=== PATIENT | male | born 1970 | race Two or more races ===

== ENCOUNTER 2020-06-24 09:02 | Emergency (ER) | payer OTHER, SELFPAY ==
[2020-06-24 09:19] VITALS: BP 138/84; PULSE 90; RESP 18; O2SAT 98; BMI 27.1
--- NOTE | 2020-06-24 09:22 | XR_ITS ---
PROCEDURE: XR FOREARM LT 2V CLINICAL INDICATION: fall Posttraumatic pain COMPARISON: CR XR WRIST LT MIN 3V from 06/24/2020 CR XR HAND LT MIN 3V from 06/24/2020 FINDINGS: Left forearm: There is a nondisplaced fracture involving the base of the styloid process of the radius. This extends into the articular surface of the distal radius. The proximal and mid aspect of the radius and ulna have an unremarkable appearance. There is an oval opacity in the soft tissues medial to the midshaft of the ulna and may be related to soft tissue ossification or foreign body. Left wrist: Nondisplaced transverse fracture at the base of the radial styloid process with extension to the articular surface with good alignment. The wrist is otherwise unremarkable. Left hand: There is a nondisplaced fracture involving the tuft of the distal phalanx the 2nd digit. IMPRESSION: 1. Nondisplaced distal radial fracture at the base of the styloid process with intra-articular involvement. 2. Nondisplaced comminuted fracture of the tuft of the distal phalanx of the 2nd digit Dictated by: Jf Jones MD 06/24/2020 10:36 Jf Jones MD in [place] 06/24/2020 10:36
--- NOTE | 2020-06-24 09:54 | XR_ITS ---
PROCEDURE: XR ELBOW LT MIN 3V CLINICAL INDICATION: fall Posttraumatic pain COMPARISON: No exams were available for comparison FINDINGS: No fracture or dislocation. No lytic or blastic change. There is normal mineralization. The joint spaces are well-preserved. No significant degenerative/arthritic changes. No erosive changes evident. Other findings:None. IMPRESSION: No acute findings. Dictated by: Jf Jones MD 06/24/2020 10:35 Jf Jones MD in [place] 06/24/2020 10:35
--- NOTE | 2020-06-24 10:18 | PC.NURSE ---
Dr. Nayeli mathias.
--- NOTE | 2020-06-24 10:45 | HMH.EDUTC ---
[facility] [place]ression: Wrist fracture, left Qualifiers: Encounter type: initial encounter Fracture type: closed Qualified Code(s): S62.102A - Fracture of unspecified carpal bone, left wrist, initial encounter for closed fracture Fall Qualifiers: Encounter type: initial encounter Qualified Code(s): W19.XXXA - Unspecified fall, initial encounter Closed fracture of phalanx of index finger Qualifiers: Encounter type: initial encounter Phalanx: distal Fracture alignment: nondisplaced Laterality: left Qualified Code(s): S62.661A - Nondisplaced fracture of distal phalanx of left index finger, initial encounter for closed fracture Hand abrasion Qualifiers: Encounter type: initial encounter Laterality: left Qualified Code(s): S60.512A - Abrasion of left hand, initial encounter Disposition: Home, Self-Care Condition on Discharge: Good Instructions: Wrist Fracture, DI for Wrist Fracture, DI for Finger Fracture, How to Take Care of Your Splint Additional Instructions: Rest the extremity, apply ice for 15 minutes as tolerated three or four times per day, Elevate the extremity as tolerated while you are resting. Wear the splint. If the injury swells and the splint becomes too tight you could take the lacey wrap off of the outside and rewrap it looser. Take ibuprofen for pain. I sent in a prescription to your pharmacy. Follow up with Dr. Tyler. She made you an appointment for next Wednesday (07-01-2020) at 3:00 pm. Her office is here in this hospital. Follow up with your regular doctor. GO TO THE ER FOR ANY WORSENING SYMPTOMS ORTHOPEDICS APPOINTMENT: Wednesday () at 3:00 pm Prescriptions: Ibuprofen [Ibuprofen 800mg Tablet] 800 mg PO Q8HP PRN #30 tab PRN Reason: Moderate Pain Transmission Status: Received by [id number] Mupirocin [Bactroban 2% Ointment 22gm tube] 1 applicatio TP TID 7 Days #1 tube Transmission Status: Received by [id number] cephALEXin [Keflex 500mg Cap] 500 mg PO Q6H 10 Days #40 cap Transmission Status: Received by [id number] Referrals: Provider,Referral, [Primary Care Provider] - Beata Tyler MD [Physician] - Forms: Work/School Release Time of Disposition: 10:55 Medical Decision Making - Medical Records Medical records reviewed: No: I reviewed the patient's medical records. - [place] Inquiry Pt receiving controlled substance: No Vital Signs: 06/24/20 09:19 06/24/20 11:02 Temperature 98.0 F Temperature Source Oral Pulse Rate 90 Pulse Rate [Radial] 90 Respiratory Rate 18 18 Blood Pressure 138/84 Blood Pressure [Right Arm] 138/84 Blood Pressure Mean [Right Arm] 102 Blood Pressure Source Automatic Cuff Blood Pressure Source [Right Arm] Automatic Cuff Blood Pressure Position Sitting Blood Pressure Position [Right Arm] Sitting 02 Sat by Pulse Oximetry 98 Oxygen Delivery Method Room Air Room Air - Radiology Data #1 Image(s): Wrist Image Reviewed: Yes I reviewed the patient's radiology image, Yes I have reviewed radiologist's interpretation Preliminary Findings: Abnormal PROCEDURE: XR FOREARM LT 2V CLINICAL INDICATION: fall Posttraumatic pain COMPARISON: CR XR WRIST LT MIN 3V from 06/24/2020 CR XR HAND LT MIN 3V from 06/24/2020 FINDINGS: Left forearm: There is a nondisplaced fracture involving the base of the styloid process of the radius. This extends into the articular surface of the distal radius. The proximal and mid aspect of the radius and ulna have an unremarkable appearance. There is an oval opacity in the soft tissues medial to the midshaft of the ulna and may be related to soft tissue ossification or foreign body. Left wrist: Nondisplaced transverse fracture at the base of the radial styloid process with extension to the articular surface with good alignment. The wrist is otherwise unremarkable. Left hand: There is a nondisplaced fracture involving the tuft of the
[2020-06-24 11:02] VITALS: BP 138/84; PULSE 90; RESP 18; TEMP 36.7; O2SAT 98
== END 2020-06-24 11:03 | disposition home or self-care (01) ==
PROVIDERS: Emergency Provider Nurse Practitioner Family
DX: S62.102A Fracture of unspecified carpal bone, left wrist, initial encounter for closed fracture (principal); S62.661A Nondisplaced fracture of distal phalanx of left index finger, initial encounter for closed fracture; S52.515A Nondisplaced fracture of left radial styloid process, initial encounter for closed fracture; W11.XXXA Fall on and from ladder, initial encounter; Y92.69 Other specified industrial and construction area as the place of occurrence of the external cause; Y99.0 Civilian activity done for income or pay; F17.210 Nicotine dependence, cigarettes, uncomplicated
CPT/HCPCS: 29125; 73080; 73090; 73110; 73130; 99202

== ENCOUNTER → 2020-07-19 14:23 | Outpatient (CLI) | payer OTHER, SELFPAY ==
--- NOTE | 2020-07-19 14:34 | XR_ITS ---
PROCEDURE: XR WRIST LT MIN 3V CLINICAL INDICATION: left radial styloid fracure; after cast removal COMPARISON: CR XR WRIST LT MIN 3V from 06/24/2020 FINDINGS: There is an ununited fracture of the radial styloid process not significantly changed from 06/24/2020. The fracture is non displaced. The joint spaces are well-preserved. No significant degenerative/arthritic changes. No erosive changes evident. Other findings:None. IMPRESSION: No change ununited radial styloid process fracture Dictated by: Jf Jones MD 07/19/2020 16:40 Jf Jones MD in [place] 07/19/2020 16:40
== END ==
PROVIDERS: Visit Provider Orthopaedic Surgery
DX: S52.513A Displaced fracture of unspecified radial styloid process, initial encounter for closed fracture (principal)
CPT/HCPCS: 73110

== ENCOUNTER → 2020-08-05 14:20 | Outpatient (CLI) | payer OTHER, SELFPAY ==
--- NOTE | 2020-08-05 14:23 | XR_ITS ---
PROCEDURE: XR WRIST LT MIN 3V CLINICAL INDICATION: Radial styloid FX Follow-up fracture COMPARISON: CR XR WRIST LT MIN 3V from 06/24/2020 CR XR WRIST LT MIN 3V from 07/19/2020 FINDINGS: Healing transverse fracture at the base of the radial styloid process with extension into the articular surface. Fracture line is somewhat less visible compared to the previous exam. The joint spaces are well-preserved. No significant degenerative/arthritic changes. No erosive changes evident. Other findings:None. IMPRESSION: Healing fracture at the base of the radial styloid process Dictated by: Jf Jones MD 08/05/2020 16:01 Jf Jones MD in [place] 08/05/2020 16:01
== END ==
PROVIDERS: Visit Provider Orthopaedic Surgery
DX: S52.512A Displaced fracture of left radial styloid process, initial encounter for closed fracture (principal)
CPT/HCPCS: 73110

== ENCOUNTER → 2020-08-28 09:52 | Outpatient (CLI) | payer OTHER, SELFPAY ==
--- NOTE | 2020-08-28 09:56 | XR_ITS ---
PROCEDURE: XR WRIST LT MIN 3V CLINICAL INDICATION: LT wrist FU COMPARISON: CR XR WRIST LT MIN 3V from 06/24/2020 CR XR WRIST LT MIN 3V from 07/19/2020 CR XR WRIST LT MIN 3V from 08/05/2020 FINDINGS: Transverse lucency once again noted at the base of the radial styloid process consistent with a nondisplaced fracture radial fracture line may be somewhat less apparent. There remains good alignment. The joint spaces are well-preserved. No significant degenerative/arthritic changes. No erosive changes evident. Other findings:None. IMPRESSION: Nondisplaced fracture of the radial styloid process with fracture line somewhat less apparent Dictated by: Jf Jones MD 08/28/2020 10:47 Jf Jones MD in [place] 08/28/2020 10:47
== END ==
PROVIDERS: Visit Provider Orthopaedic Surgery
DX: M20.022 Boutonniere deformity of left finger(s) (principal); S52.515A Nondisplaced fracture of left radial styloid process, initial encounter for closed fracture
CPT/HCPCS: 73110

== ENCOUNTER 2020-08-28 10:46 | Outpatient (RCR) | payer OTHER, SELFPAY | END 2020-08-28 11:15 | disposition home or self-care (01) | LOC: OT 10:46 | PROVIDERS: Visit Provider Orthopaedic Surgery | DX: S52.515D Nondisplaced fracture of left radial styloid process, subsequent encounter for closed fracture with routine healing (principal); M20.022 Boutonniere deformity of left finger(s) | CPT/HCPCS: 97763 ==